=== PATIENT | female | born 1975 | race Caucasian/White ===

== ENCOUNTER 2022-03-01 08:01 | Emergency (ER) | payer OTHER ==
[~2022-03-01] VITALS: Ht 180.3 cm; Wt 142.5 kg
[2022-03-01 08:02] VITALS: BP 136/71
[2022-03-01] MEDS ORDERED: BUPR150T12 (08:17)
[2022-03-01] MEDS ORDERED: LEVO25TA5 (08:17)
[2022-03-01] MEDS ORDERED: IBUP-1022 PO (08:17)
== END 2022-03-01 14:14 | disposition left against medical advice (07) ==
LOC: M ED 08:01
DX: Z53.21 Procedure and treatment not carried out due to patient leaving prior to being seen by health care provider (principal)